=== PATIENT | female | born 1970 | race Caucasian/White ===

== ENCOUNTER 2017-11-11 09:38 | Outpatient (CLI) | payer OTHER | END 2017-11-11 09:39 | disposition home or self-care (01) | LOC: BICMAMMO 09:38 | PROVIDERS: ATTEND Obstetrics & Gynecology | DX: Z12.31 Encounter for screening mammogram for malignant neoplasm of breast (principal) | CPT/HCPCS: 77063; 77067 ==

== ENCOUNTER 2018-11-14 07:38 | Outpatient (CLI) | payer OTHER ==
--- NOTE | 2018-11-14 08:44 | MMO ---
Bilateral MAMMO Bilat Screen [facility]DI+[facility]. CLINICAL HISTORY: Patient is 48 years old and is seen for screening. The patient has no family history of breast cancer. The patient has no personal history of cancer. VIEWS: The views performed were: bilateral craniocaudal with tomosynthesis and bilateral mediolateral oblique with tomosynthesis. FILMS COMPARED: The present examination has been compared to prior imaging studies performed at [facility] on 10/07/2015, 11/08/2016 and 11/11/2017. MAMMOGRAM FINDINGS: The breasts are heterogeneously dense, which could obscure a lesion on mammography. Finding 1: There is a suggested area of architectural distortion seen in the upper-outer region of the left breast only on the tomsynthesis images. Finding 2: There are stable benign appearing calcifications seen in both breasts. IMPRESSION: FINDING 1: AREA OF ARCHITECTURAL DISTORTION IN THE LEFT BREAST REQUIRES ADDITIONAL EVALUATION. RECOMMEND DIAGNOSTIC MAMMOGRAM. FINDING 2: STABLE CALCIFICATIONS IN BOTH BREASTS ARE BENIGN. 3BTHE RESULTS OF THIS EXAM WERE SENT TO THE PATIENT.0B ACR BI-RADS Category 0 - Incomplete: Need additional imaging evaluation. [facility] will notify the patient of the need for additional imaging services. MAMMOGRAPHY NOTE: 1. A negative mammogram report should not delay a biopsy if a dominant of clinically suspicious mass is present. 2. Approximately 10% to 15% of breast cancers are not detected by mammography. 3. Adenosis and dense breasts may obscure an underlying neoplasm. Reported by: BEATRIZ ZEPEDA MD Electonically Signed: [id number]
== END 2018-11-14 07:39 | disposition home or self-care (01) ==
LOC: BICMAMMO 07:38
PROVIDERS: ATTEND Family Medicine
DX: Z12.31 Encounter for screening mammogram for malignant neoplasm of breast (principal); Q83.9 Congenital malformation of breast, unspecified
CPT/HCPCS: 77063; 77067

== ENCOUNTER 2018-12-17 08:10 | Outpatient (CLI) | payer OTHER ==
--- NOTE | 2018-12-17 08:50 | MMO ---
Left Breast MAMMO Unilat Diag DDI LT+ROCIO. CLINICAL HISTORY: Patient is 48 years old and is seen for additional evaluation requested from prior study. The patient has no family history of breast cancer. The patient has no personal history of cancer. VIEWS: The views performed were: left craniocaudal spot compression with tomosynthesis; left mediolateral oblique spot compression with tomosynthesis; and left mediolateral with tomosynthesis. FILMS COMPARED: The present examination has been compared to prior imaging studies performed at [facility] on 11/08/2016, 11/11/2017, 11/14/2018 and 12/17/2018. MAMMOGRAM FINDINGS: The breast is heterogeneously dense, which could obscure a lesion on mammography. There is a focal asymmetry seen in the upper-outer region of the left breast. This becomes less conspicuous at spot imaging. No sonographic correlate is identified. IMPRESSION: FOCAL ASYMMETRY IN THE LEFT BREAST IS PROBABLY BENIGN. FOLLOW-UP IN 6 MONTHS IS RECOMMENDED. THE RESULTS OF THIS EXAM WERE SENT TO THE PATIENT. ACR BI-RADS Category 3 - Probably benign finding - short interval follow-up suggested. [facility] will notify the patient of the need for additional imaging services. MAMMOGRAPHY NOTE: 1. A negative mammogram report should not delay a biopsy if a dominant of clinically suspicious mass is present. 2. Approximately 10% to 15% of breast cancers are not detected by mammography. 3. Adenosis and dense breasts may obscure an underlying neoplasm. Reported by: SIRI MCKEON MD Electonically Signed: [id number]
--- NOTE | 2018-12-17 10:19 | ULT ---
LIMITED LEFT BREAST ULTRASOUND: Date: 12/17/18 PROVIDED CLINICAL HISTORY: Abnormal mammogram. FINDINGS: Limited sonographic interrogation of the left breast from the 12-3 o'clock positions demonstrates sev eral simple cysts. No concerning mammographic findings are evident. IMPRESSION: BI-RADS Category 3 - Probably benign findings. 6 month follow-up diagnostic mammogram is recommended for findings seen only by mammography. Please see that report. POS: OFF
== END 2018-12-17 08:11 | disposition home or self-care (01) ==
LOC: BICMAMMO 08:10
PROVIDERS: ATTEND Family Medicine
DX: R92.2 Inconclusive mammogram (principal); N64.89 Other specified disorders of breast
CPT/HCPCS: G0279

== ENCOUNTER 2019-05-25 08:24 | Outpatient (CLI) | payer OTHER ==
--- NOTE | 2019-05-25 12:15 | CT ---
CT ABDOMEN PERFORMED WITH CONTRAST ENHANCEMENT: Date: 05/25/2019 HISTORY: Abdominal pain. Patient feels like there is a mass in the mid epigastric region. COMPARISON: None. FINDINGS: Lung bases show calcified granuloma in the left base. There are diffuse fatty changes of the liver, which measures 17.2 cm in length. The spleen, pancreas, and gallbladder regions are unremarkable. Right and left adrenal glands, and right and left kidneys are normal in size. Small hypodensities inv olving both kidneys are statistically most likely cysts. Punctate nonobstructing right renal calculus is present. There is no significant periaortic or mesenteric adenopathy. Colonic diverticulosis is n oted. There is a fat-containing periumbilical hernia present. There is slightly eventrated appearance to the mid abdominal wall. IMPRESSION: 1. Fatty change of liver. 2. Colonic diverticulosis. 3. Small fat-containing periumbilical hernia. There is also slight eventration to the midline of the anterior abdominal wall. 4. Punctate nonobstructing right renal calculus. POS: DEYANIRA
[2019-05-25] MEDS ORDERED: Iopamidol 370 76% 100 ML VIAL ONE (13:49)
== END 2019-05-25 08:25 | disposition home or self-care (01) ==
LOC: CT 08:24
PROVIDERS: ATTEND Family Medicine
DX: R10.9 Unspecified abdominal pain (principal); K76.0 Fatty (change of) liver, not elsewhere classified; N20.0 Calculus of kidney; K42.9 Umbilical hernia without obstruction or gangrene; K57.30 Diverticulosis of large intestine without perforation or abscess without bleeding
CPT/HCPCS: 74160; Q9967

== ENCOUNTER 2019-06-25 08:25 | Outpatient (CLI) | payer OTHER ==
--- NOTE | 2019-06-25 09:16 | MMO ---
Left Breast MAMMO Unilat Diag [facility]DI LT+ROCIO. CLINICAL HISTORY: Patient is 49 years old and is seen for follow-up at short-interval from prior study. The patient has no family history of breast cancer. The patient has no personal history of cancer. VIEWS: The views performed were: left craniocaudal with tomosynthesis; left craniocaudal spot compression with tomosynthesis; left mediolateral oblique with tomosynthesis; left mediolateral oblique spot compression with tomosynthesis; and left mediolateral with tomosynthesis. FILMS COMPARED: The present examination has been compared to prior imaging studies performed at [facility] on 11/14/2018, 12/17/2018 and 06/25/2019. This study has been interpreted with the assistance of computer-aided detection. MAMMOGRAM FINDINGS: The breast is heterogeneously dense, which could obscure a lesion on mammography. There is a stable focal asymmetry seen in the upper-outer region of the left breast. IMPRESSION: STABLE FOCAL ASYMMETRY IN THE LEFT BREAST IS PROBABLY BENIGN. FOLLOW-UP IN 6 MONTHS IS RECOMMENDED. THE RESULTS OF THIS EXAM WERE SENT TO THE PATIENT. ACR BI-RADS Category 3 - Probably benign finding - short interval follow-up suggested. [facility] will notify the patient of the need for additional imaging services. MAMMOGRAPHY NOTE: 1. A negative mammogram report should not delay a biopsy if a dominant of clinically suspicious mass is present. 2. Approximately 10% to 15% of breast cancers are not detected by mammography. 3. Adenosis and dense breasts may obscure an underlying neoplasm. Reported by: PIPPA SINHA MD Electonically Signed: [id number]
--- NOTE | 2019-06-25 10:51 | ULT ---
LEFT BREAST ULTRASOUND: HISTORY: Abnormal mammogram. FINDINGS: Comparison is made with the ultrasound of 12/17/2018 and correlation was made with the mammograms of gil shirley and 12/17/2018. Sonographic evaluation of the left breast from the 12 through 3 o'clock positions demonstrates multip le cysts. No suspicious sonographic finding is seen to correspond to the mammographic findings. IMPRESSION: BIRADS category 3 - probably benign findings. Six-month followup diagnostic mammogram and ultrasound are recommended.
== END 2019-06-25 08:26 | disposition home or self-care (01) ==
LOC: BICMAMMO 08:25
PROVIDERS: ATTEND Family Medicine
DX: R92.2 Inconclusive mammogram (principal); N64.89 Other specified disorders of breast
CPT/HCPCS: G0279

== ENCOUNTER 2019-10-20 13:37 | Outpatient (CLI) | payer OTHER ==
[2019-10-21 13:33] LABS: SARS-CoV-2 MS2 Positive; SARS-CoV-2 N Gene Negative; SARS-CoV-2 S Gene Negative; SARS-CoV-2 orf1ab Negative
== END 2019-10-20 13:38 | disposition home or self-care (01) ==
LOC: LABSCS 13:37
PROVIDERS: ATTEND Internal Medicine Gastroenterology
DX: Z01.812 Encounter for preprocedural laboratory examination (principal); Z11.59 Encounter for screening for other viral diseases
CPT/HCPCS: 87635; U0003

== ENCOUNTER 2019-10-22 08:38 | Outpatient (CLI) | payer OTHER ==
--- NOTE | 2019-10-22 10:58 | RAD ---
At the GI air contrast HISTORY: Dysphagia. Reflux. Hiatal hernia. FINDINGS: Air contrast barium evaluation shows a small sliding hiatal hernia. Moderate amount of refl ux of gastric contrast into the esophagus. Mild nonpropulsive tertiary type contractions. Normal gastric peristalsis. No focal mass or ulceration. Duodenum and visualized proximal small bowel are within normal limits. Fluoroscopy time 1.4 minutes. IMPRESSION : Very small sliding hiatal hernia without a paraesophageal component. Moderate amount of gastroesophageal reflux with tertiary contractions of the esophagus.
== END 2019-10-22 08:39 | disposition home or self-care (01) ==
LOC: RAD 08:38
PROVIDERS: ATTEND Internal Medicine Gastroenterology
DX: K21.9 Gastro-esophageal reflux disease without esophagitis (principal); K44.0 Diaphragmatic hernia with obstruction, without gangrene; K22.8 Other specified diseases of esophagus
CPT/HCPCS: 74246

== ENCOUNTER 2020-01-15 08:09 | Outpatient (CLI) | payer BC ==
--- NOTE | 2020-01-15 09:06 | ULT ---
EXAM: US Breast Limited Lt PROVIDED CLINICAL HISTORY: Abnormal mammogram COMPARISON: Prior ultrasounds and diagnostic mammograms FINDINGS: Limited sonographic interrogation was performed of the left breast in the region of mammographic conc james. Several small simple cysts are seen. No concerning sonographic finding is evident. IMPRESSION: No concerning sonographic finding is evident. Six-month follow-up diagnostic left mammogram is recomm ended. BI-RADS 3 -- probably benign, 6-month follow-up
--- NOTE | 2020-01-15 09:06 | MMO ---
Bilateral MAMMO Bilat Diag [facility]DI+ROCIO. CLINICAL HISTORY: Patient is 49 years old and is seen for diagnostic exam. The patient has no family history of breast cancer. The patient has no personal history of cancer. VIEWS: The views performed were: bilateral craniocaudal with tomosynthesis; bilateral mediolateral oblique with tomosynthesis; and bilateral mediolateral with tomosynthesis. FILMS COMPARED: The present examination has been compared to prior imaging studies performed at [facility] on 12/17/2018, 06/25/2019 and 01/15/2020. This study has been interpreted with the assistance of computer-aided detection. MAMMOGRAM FINDINGS: The breasts are heterogeneously dense, which could obscure a lesion on mammography. Finding 1: There are stable benign appearing calcifications seen in both breasts. Finding 2: There is a stable focal asymmetry seen in the upper-outer region of the left breast. Sonography of this region demonstrates no concerning findings. IMPRESSION: FINDING 2: STABLE FOCAL ASYMMETRY IN THE LEFT BREAST IS PROBABLY BENIGN. FOLLOW-UP IN 6 MONTHS IS RECOMMENDED. THE RESULTS OF THIS EXAM WERE SENT TO THE PATIENT. ACR BI-RADS Category 3 - Probably benign finding - short interval follow-up suggested. [facility] will notify the patient of the need for additional imaging services. MAMMOGRAPHY NOTE: 1. A negative mammogram report should not delay a biopsy if a dominant of clinically suspicious mass is present. 2. Approximately 10% to 15% of breast cancers are not detected by mammography. 3. Adenosis and dense breasts may obscure an underlying neoplasm. Reported by: SIRI MCKEON MD Electonically Signed: [id number]
== END 2020-01-15 08:10 | disposition home or self-care (01) ==
LOC: BICMAMMO 08:09
PROVIDERS: ATTEND Family Medicine
DX: R92.8 Other abnormal and inconclusive findings on diagnostic imaging of breast (principal); N64.89 Other specified disorders of breast
CPT/HCPCS: 77066; G0279

== ENCOUNTER 2020-07-18 08:13 | Outpatient (CLI) | payer BC | END 2020-07-18 08:14 | disposition home or self-care (01) | LOC: BICMAMMO 08:13 | PROVIDERS: ATTEND Family Medicine | DX: R92.8 Other abnormal and inconclusive findings on diagnostic imaging of breast (principal) | CPT/HCPCS: G0279 ==

== ENCOUNTER 2023-10-23 07:55 | Outpatient (CLI) | payer BC | END 2023-10-23 07:56 | disposition home or self-care (01) | LOC: BICMAMMO 07:55 | PROVIDERS: ATTEND Physician Assistant | DX: N63.21 Unspecified lump in the left breast, upper outer quadrant (principal); N64.9 Disorder of breast, unspecified | CPT/HCPCS: 77066; G0279 ==

== ENCOUNTER → 2023-10-31 | Day surgery (SDC) | payer BC | LOC: BICULT 12:36 | PROVIDERS: ATTEND Physician Assistant | PROC: 0H95XZX Drainage of Chest Skin, External Approach, Diagnostic (ICD-10-PCS; principal; 2023-10-31) | DX: C50.412 Malignant neoplasm of upper-outer quadrant of left female breast (principal); Z17.0 Estrogen receptor positive status [ER+]; R92.8 Other abnormal and inconclusive findings on diagnostic imaging of breast | CPT/HCPCS: 19083; 19084; 88305; 88341; 88342; 88360 ==

== ENCOUNTER 2023-11-27 08:39 | Outpatient (CLI) | payer BC | END 2023-11-27 08:40 | disposition home or self-care (01) | LOC: BICCT 08:39 | PROVIDERS: ATTEND Internal Medicine | DX: Z12.2 Encounter for screening for malignant neoplasm of respiratory organs (principal); Z87.891 Personal history of nicotine dependence | CPT/HCPCS: 71271 ==

== ENCOUNTER 2024-02-18 10:50 | Inpatient (IN) | payer BC ==
[2024-02-18 11:18] LABS: #Basophils 0.08 10x3/uL (0.0-0.2); #Eosinophils Less than 0.03 10x3/uL (0.0-0.7); %Basophils 0.5 % (0.0-1.0); %Lymphocytes 17.9 % (21.0-51.0); %Monocytes 7.7 % (0.0-10.0); %Neutrophils 70.2 % (42.0-75.0); Hematocrit 33.7 % (36.0-47.0); Hemoglobin 10.9 g/dL (12.0-16.0); Mean Corpuscular HGB CONC 32.3 g/dL (32.0-36.0); Mean Corpuscular Volume 102.1 fL (78.0-98.0); Mean Platelet Volume 9.1 fL (7.4-10.4); Platelet Count 218 10x3/uL (130-400); RBC Distribution Width 14.6 % (11.5-14.5)
[2024-02-18 11:37] LABS: ALT (SGPT) 31 U/L (8-55); AST (SGOT) 27 U/L (5-34); Albumin 3.9 g/dL (3.5-5.0); Alkaline Phosphatase 96 U/L (40-110); Anion Gap 13 mmol/L (10-20); BUN (Urea Nitrogen) 12 mg/dL (9.8-20.1); Bilirubin, Total 0.2 mg/dL (0.2-1.2); Calc. Creatinine Clearance 0 mL/min (70-130); Calcium 9.2 mg/dL (7.8-10.44); Carbon Dioxide 24 mmol/L (22-29); Chloride 105 mmol/L (98-107); Estimated GFR 104; Globulin 2.8 g/dL (2.4-3.5); Glucose 93 mg/dL (70-105); Lipase 21 U/L (8-78); Potassium 3.9 mmol/L (3.5-5.1); Protein, Total 6.7 g/dL (6.0-8.3); Sodium 138 mmol/L (136-145)
[2024-02-18] MEDS ORDERED: Iopamidol-370 76% 500 ML MDV (1 ML CHARGE) ONE (11:51)
[2024-02-18] MEDS ORDERED: Pantoprazole 40 MG VIAL ONE (11:58)
[2024-02-18 13:10] LABS: INR-International Normal Ratio 0.9; Prothrombin Time 12.6 sec (12.0-14.7)
[2024-02-18] MEDS ORDERED: Acetaminophen 325 MG TAB PO PRN (13:48)
[2024-02-18 15:00] VITALS: BMI 27.4
[2024-02-18 18:08] LABS: #Basophils 0.06 10x3/uL (0.0-0.2); #Eosinophils Less than 0.03 10x3/uL (0.0-0.7); %Basophils 0.4 % (0.0-1.0); %Lymphocytes 19.7 % (21.0-51.0); %Monocytes 5.2 % (0.0-10.0); %Neutrophils 72.7 % (42.0-75.0); Hematocrit 33.4 % (36.0-47.0); Mean Corpuscular HGB CONC 32.9 g/dL (32.0-36.0); Mean Corpuscular Hemoglobin 33.2 pg (27.0-31.0); Mean Corpuscular Volume 100.9 fL (78.0-98.0); Mean Platelet Volume 9.5 fL (7.4-10.4); Platelet Count 210 10x3/uL (130-400); RBC Distribution Width 14.6 % (11.5-14.5); Red Blood Cell (RBC) Count 3.31 mill/uL (4.20-5.40)
[2024-02-18] MEDS: Pantoprazole 40 MG VIAL IVP SCH (21:41)
[2024-02-19 05:11] LABS: #Basophils 0.07 10x3/uL (0.0-0.2); #Eosinophils Less than 0.03 10x3/uL (0.0-0.7); %Basophils 0.6 % (0.0-1.0); %Lymphocytes 22.5 % (21.0-51.0); %Monocytes 9.2 % (0.0-10.0); %Neutrophils 64.9 % (42.0-75.0); Hematocrit 33.1 % (36.0-47.0); Hemoglobin 10.6 g/dL (12.0-16.0); Mean Corpuscular Hemoglobin 32.8 pg (27.0-31.0); Mean Corpuscular Volume 102.5 fL (78.0-98.0); Mean Platelet Volume 9.6 fL (7.4-10.4); Platelet Count 214 10x3/uL (130-400); Red Blood Cell (RBC) Count 3.23 mill/uL (4.20-5.40)
[2024-02-19] MEDS ORDERED: Pantoprazole 40 MG VIAL IVP SCH (09:00)
[2024-02-19] MEDS ORDERED: PROPOFOL 20 ML ONE ×2 (10:46→10:52)
[2024-02-19] MEDS ORDERED: PHENYLEPHRINE-NS 100 MCG/ML 10 ML SYRINGE ONE (10:55)
[2024-02-19] MEDS ORDERED: Ondansetron PF 4 MG/2 ML Vial ONE (11:01)
[2024-02-19] MEDS: GoLYTELY 4,000 ml Bottle PO SCH (17:15)
[2024-02-19] MEDS ORDERED: traMADol HCl 50 MG TAB PO PRN (18:41)
[2024-02-19] MEDS: Acyclovir 400 mg Tablet PO SCH (21:49)
[2024-02-19] MEDS: Citalopram 10 MG TAB PO SCH (21:50)
[2024-02-20] MEDS ORDERED: Pantoprazole DR 40 MG TAB PO SCH (09:00)
[2024-02-20] MEDS ORDERED: Citalopram 10 MG TAB PO SCH (09:00)
[2024-02-20] MEDS ORDERED: Lidocaine 2% PF 5 ML VIAL ONE (09:12)
[2024-02-20] MEDS ORDERED: Midazolam HCl 2 mg/2 ml Vial ONE (09:12)
[2024-02-20] MEDS ORDERED: PROPOFOL 20 ML ONE (09:13)
[2024-02-20 18:29] LABS: #Basophils 0.06 10x3/uL (0.0-0.2); #Eosinophils Less than 0.03 10x3/uL (0.0-0.7); %Basophils 0.6 % (0.0-1.0); %Lymphocytes 28.2 % (21.0-51.0); %Monocytes 10.6 % (0.0-10.0); %Neutrophils 59.1 % (42.0-75.0); Hematocrit 30.4 % (36.0-47.0); Hemoglobin 9.7 g/dL (12.0-16.0); Mean Corpuscular HGB CONC 31.9 g/dL (32.0-36.0); Mean Corpuscular Hemoglobin 33.1 pg (27.0-31.0); Mean Corpuscular Volume 103.8 fL (78.0-98.0); Mean Platelet Volume 9.3 fL (7.4-10.4); Platelet Count 193 10x3/uL (130-400); RBC Distribution Width 14.8 % (11.5-14.5); Red Blood Cell (RBC) Count 2.93 mill/uL (4.20-5.40)
[2024-02-20 18:53] LABS: ALT (SGPT) 28 U/L (8-55); AST (SGOT) 25 U/L (5-34); Albumin 3.5 g/dL (3.5-5.0); Alkaline Phosphatase 71 U/L (40-110); Anion Gap 12 mmol/L (10-20); BUN (Urea Nitrogen) 8 mg/dL (9.8-20.1); Bilirubin, Total 0.2 mg/dL (0.2-1.2); Calc. Creatinine Clearance 112 mL/min (70-130); Calcium 8.7 mg/dL (7.8-10.44); Carbon Dioxide 24 mmol/L (22-29); Chloride 106 mmol/L (98-107); Estimated GFR 103; Globulin 2.5 g/dL (2.4-3.5); Glucose 98 mg/dL (70-105); Potassium 3.7 mmol/L (3.5-5.1); Sodium 138 mmol/L (136-145)
[2024-02-20] MEDS: Citalopram 10 MG TAB PO SCH (20:15)
[2024-02-20] MEDS: Simvastatin 10 MG TAB PO SCH (20:15)
[2024-02-21 05:08] LABS: #Basophils 0.04 10x3/uL (0.0-0.2); #Eosinophils Less than 0.03 10x3/uL (0.0-0.7); %Basophils 0.4 % (0.0-1.0); %Lymphocytes 29.2 % (21.0-51.0); Hematocrit 28.7 % (36.0-47.0); Hemoglobin 9.1 g/dL (12.0-16.0); Mean Corpuscular HGB CONC 31.7 g/dL (32.0-36.0); Mean Corpuscular Hemoglobin 32.7 pg (27.0-31.0); Mean Corpuscular Volume 103.2 fL (78.0-98.0); Mean Platelet Volume 9.4 fL (7.4-10.4); Platelet Count 177 10x3/uL (130-400); RBC Distribution Width 14.8 % (11.5-14.5); Red Blood Cell (RBC) Count 2.78 mill/uL (4.20-5.40)
[2024-02-21 05:21] LABS: Anion Gap 10 mmol/L (10-20); BUN (Urea Nitrogen) 9 mg/dL (9.8-20.1); Calc. Creatinine Clearance 122 mL/min (70-130); Calcium 8.7 mg/dL (7.8-10.44); Carbon Dioxide 27 mmol/L (22-29); Chloride 106 mmol/L (98-107); Estimated GFR 105; Glucose 91 mg/dL (70-105); Sodium 139 mmol/L (136-145)
[2024-02-21] MEDS: Pantoprazole DR 40 MG TAB PO SCH (10:34)
[2024-02-21 13:47] VITALS: BP 142/81; TEMP 98.6
== END 2024-02-21 14:20 | disposition home or self-care (01) | DRG 378 ==
LOC: ERS 10:50 → MSONC 14:39
PROVIDERS: ADMIT Hospitalist; ATTEND Student in an Organized Health Care Education/Training Program
PROC: 0DJ08ZZ Inspection of Upper Intestinal Tract, Via Natural or Artificial Opening Endoscopic (ICD-10-PCS; principal; 2024-02-19)
DX: K92.1 Melena (principal); I82.612 Acute embolism and thrombosis of superficial veins of left upper extremity; D72.829 Elevated white blood cell count, unspecified; C50.919 Malignant neoplasm of unspecified site of unspecified female breast; K21.9 Gastro-esophageal reflux disease without esophagitis; I10 Essential (primary) hypertension; K57.30 Diverticulosis of large intestine without perforation or abscess without bleeding; K64.8 Other hemorrhoids; K31.7 Polyp of stomach and duodenum; T45.1X5A Adverse effect of antineoplastic and immunosuppressive drugs, initial encounter; Z92.21 Personal history of antineoplastic chemotherapy; Z88.8 Allergy status to other drugs, medicaments and biological substances; Z88.7 Allergy status to serum and vaccine; Z91.018 Allergy to other foods; Z91.09 Other allergy status, other than to drugs and biological substances; Z79.899 Other long term (current) drug therapy; Z88.1 Allergy status to other antibiotic agents; Z87.891 Personal history of nicotine dependence
CPT/HCPCS: 36415; 74177; 80048; 80053; 83605; 83690; 85025; 85610; 85730; 96374; J2250; J2405; J2470; J2704; Q9967

== ENCOUNTER 2024-04-17 10:41 | Outpatient (CLI) | payer BC ==
[2024-04-17 12:32] LABS: #Basophils 0.06 10x3/uL (0.0-0.2); %Basophils 0.6 % (0.0-1.0); %Eosinophils 0.4 % (0.0-10.0); %Lymphocytes 24.5 % (21.0-51.0); %Monocytes 12.3 % (0.0-10.0); Hematocrit 37.1 % (36.0-47.0); Hemoglobin 11.8 g/dL (12.0-16.0); Mean Corpuscular HGB CONC 31.8 g/dL (32.0-36.0); Mean Corpuscular Hemoglobin 31.8 pg (27.0-31.0); Mean Platelet Volume 11.1 fL (7.4-10.4); Platelet Count 305 10x3/uL (130-400); RBC Distribution Width 13.5 % (11.5-14.5); Red Blood Cell (RBC) Count 3.71 mill/uL (4.20-5.40)
[2024-04-17 13:08] LABS: Anion Gap 14 mmol/L (10-20); BUN (Urea Nitrogen) 17 mg/dL (9.8-20.1); Calc. Creatinine Clearance 0 mL/min (70-130); Calcium 9.5 mg/dL (7.8-10.44); Carbon Dioxide 23 mmol/L (22-29); Chloride 107 mmol/L (98-107); Estimated GFR 105; Glucose 85 mg/dL (70-105); Potassium 4.5 mmol/L (3.5-5.1); Sodium 139 mmol/L (136-145)
== END 2024-04-17 10:42 | disposition home or self-care (01) ==
LOC: LABBT 10:41
PROVIDERS: ATTEND Specialist
DX: Z01.818 Encounter for other preprocedural examination (principal); C50.912 Malignant neoplasm of unspecified site of left female breast
CPT/HCPCS: 80048; 85025; 93005; 93010

== ENCOUNTER 2024-04-17 12:21 | Emergency (ER) | payer BC ==
[2024-04-17 13:02] LABS: #Basophils 0.06 10x3/uL (0.0-0.2); %Basophils 0.6 % (0.0-1.0); %Eosinophils 0.5 % (0.0-10.0); %Lymphocytes 25.4 % (21.0-51.0); %Monocytes 10.6 % (0.0-10.0); %Neutrophils 62.6 % (42.0-75.0); Hematocrit 37.4 % (36.0-47.0); Mean Corpuscular HGB CONC 32.1 g/dL (32.0-36.0); Mean Corpuscular Hemoglobin 31.7 pg (27.0-31.0); Mean Corpuscular Volume 98.9 fL (78.0-98.0); Mean Platelet Volume 9.5 fL (7.4-10.4); Platelet Count 389 10x3/uL (130-400); RBC Distribution Width 13.4 % (11.5-14.5); Red Blood Cell (RBC) Count 3.78 mill/uL (4.20-5.40)
[2024-04-17 13:29] LABS: ALT (SGPT) 38 U/L (8-55); AST (SGOT) 38 U/L (5-34); Albumin 4.2 g/dL (3.5-5.0); Alkaline Phosphatase 79 U/L (40-110); Anion Gap 12 mmol/L (10-20); BUN (Urea Nitrogen) 16 mg/dL (9.8-20.1); Bilirubin, Total 0.3 mg/dL (0.2-1.2); Calc. Creatinine Clearance 0 mL/min (70-130); Calcium 9.8 mg/dL (7.8-10.44); Carbon Dioxide 26 mmol/L (22-29); Chloride 105 mmol/L (98-107); Estimated GFR 105; Globulin 3.1 g/dL (2.4-3.5); Glucose 90 mg/dL (70-105); Protein, Total 7.3 g/dL (6.0-8.3); Sodium 139 mmol/L (136-145)
[2024-04-17 13:31] LABS: Troponin I Less than 0.010 ng/mL (< 0.028)
[2024-04-17] MEDS ORDERED: dilTIAZem 25 MG/5 ML VIAL ONE (13:35)
== END 2024-04-17 15:15 | disposition home or self-care (01) ==
LOC: ERS 12:21
DX: I48.91 Unspecified atrial fibrillation (principal)
CPT/HCPCS: 71045; 84484; 93005; 96374

== ENCOUNTER 2024-04-24 07:59 | Day surgery (SDC) | payer BC ==
[2024-04-24] MEDS ORDERED: CEFAZOLIN 2 GM VIAL ONE (09:50)
[2024-04-24] MEDS ORDERED: Heparin 5,000 UNITS/ML VIAL ONE (09:50)
[2024-04-24] MEDS ORDERED: Acetaminophen 500 MG TAB ONE (09:50)
[2024-04-24] MEDS ORDERED: Ketorolac Tromethamine 30 MG (1 mL) VIAL ONE (09:50)
[2024-04-24] MEDS ORDERED: Isosulfan Blue 50 MG/5 ML VIAL ONE (10:36)
[2024-04-24] MEDS ORDERED: Bupivacaine 0.25% HCL 30 ML VIAL ONE (10:36)
[2024-04-24] MEDS ORDERED: EPINEPHrine 1 MG/ML VIAL ONE (10:36)
[2024-04-24] MEDS ORDERED: Vancomycin 1 GM VIAL ONE (11:16)
[2024-04-24] MEDS ORDERED: Indocyanine Green 25 MG/10 ML VIAL ONE (11:20)
[2024-04-24] MEDS ORDERED: fentaNYL PF 100 MCG/2 ML SYRINGE ONE (11:35)
[2024-04-24] MEDS ORDERED: PROPOFOL 20 ML ONE (11:35)
[2024-04-24] MEDS ORDERED: Midazolam HCl 2 mg/2 ml Vial ONE ×2 (11:35→11:37)
[2024-04-24] MEDS ORDERED: Lidocaine 1% PF 5 ML VIAL ONE (12:00)
[2024-04-24] MEDS ORDERED: Rocuronium Bromide 10 MG/ML (10ML VIAL) ONE (12:00)
[2024-04-24] MEDS ORDERED: fentaNYL 50 mcg/mL 1 mL Vial ONE (13:20)
[2024-04-24] MEDS ORDERED: KETAMINE 100 MG/ML (5ML VIAL) ONE (13:44)
[2024-04-24] MEDS ORDERED: Ondansetron PF 4 MG/2 ML Vial ONE (14:29)
[2024-04-24] MEDS ORDERED: Dexamethasone 20 MG/5 ML VIAL ONE (14:29)
[2024-04-24] MEDS ORDERED: SUGAMMADEX SODIUM 200 MG/2 ML VIAL ONE (14:37)
[2024-04-24] MEDS ORDERED: HYDROcodone/Acetaminophen 5/325 mg Tablet ONE (17:34)
== END 2024-04-24 17:55 | disposition home or self-care (01) ==
LOC: SDC 07:59
PROVIDERS: ATTEND Specialist
PROC: 07B60ZZ Excision of Left Axillary Lymphatic, Open Approach (ICD-10-PCS; principal; 2024-04-24)
PROC: 0HTV0ZZ Resection of Bilateral Breast, Open Approach (ICD-10-PCS; principal; 2024-04-24)
DX: C50.912 Malignant neoplasm of unspecified site of left female breast (principal); C77.3 Secondary and unspecified malignant neoplasm of axilla and upper limb lymph nodes; N60.91 Unspecified benign mammary dysplasia of right breast; I10 Essential (primary) hypertension; Z96.653 Presence of artificial knee joint, bilateral; Z87.891 Personal history of nicotine dependence; Z98.890 Other specified postprocedural states; Z91.048 Other nonmedicinal substance allergy status; Z91.018 Allergy to other foods; Z88.1 Allergy status to other antibiotic agents; Z88.8 Allergy status to other drugs, medicaments and biological substances; Z79.51 Long term (current) use of inhaled steroids; Z79.899 Other long term (current) drug therapy
CPT/HCPCS: 78195; 88307; 88309; 88341; 88342; A6258; A9541; C1713; J0171; J0665; J1100; J1642; J1644; J1885; J2250; J2405; J2704; J3010; J3370; Q9968

== ENCOUNTER 2024-05-25 06:04 | Day surgery (SDC) | payer BC ==
[2024-05-21 14:36] VITALS: BMI 28.2
[2024-05-25] MEDS ORDERED: Acetaminophen 500 MG TAB ONE (06:34)
[2024-05-25] MEDS ORDERED: Ketorolac Tromethamine 30 MG (1 mL) VIAL ONE (06:34)
[2024-05-25] MEDS ORDERED: Heparin 5,000 UNITS/ML VIAL ONE (06:34)
[2024-05-25] MEDS ORDERED: CEFAZOLIN 2 GM VIAL ONE (06:35)
[2024-05-25] MEDS ORDERED: Bupivacaine 0.25% HCL 30 ML VIAL ONE ×2 (06:54→13:38)
[2024-05-25] MEDS ORDERED: Gentamicin 80 MG/2 ML VIAL ONE ×2 (06:54→08:44)
[2024-05-25] MEDS ORDERED: EPINEPHrine 1 MG/ML VIAL ONE (06:54)
[2024-05-25] MEDS ORDERED: Vancomycin 1 GM VIAL ONE ×2 (06:55→08:45)
[2024-05-25] MEDS ORDERED: Rocuronium Bromide 10 MG/ML (10ML VIAL) ONE ×2 (07:03→07:14)
[2024-05-25] MEDS ORDERED: PROPOFOL 20 ML ONE (07:03)
[2024-05-25] MEDS ORDERED: fentaNYL PF 100 MCG/2 ML SYRINGE ONE ×2 (07:03→09:53)
[2024-05-25] MEDS ORDERED: Lidocaine 1% PF 5 ML VIAL ONE ×2 (07:14→13:45)
[2024-05-25] MEDS ORDERED: Midazolam HCl 2 mg/2 ml Vial ONE (07:22)
[2024-05-25] MEDS ORDERED: Ondansetron PF 4 MG/2 ML Vial ONE (08:41)
[2024-05-25] MEDS ORDERED: Dexamethasone 20 MG/5 ML VIAL ONE (08:41)
[2024-05-25] MEDS ORDERED: PHENYLEPHRINE-NS 100 MCG/ML 10 ML SYRINGE ONE (09:13)
[2024-05-25] MEDS ORDERED: Indocyanine Green 25 MG/10 ML VIAL ONE (10:29)
[2024-05-25] MEDS ORDERED: SUGAMMADEX SODIUM 200 MG/2 ML VIAL ONE (10:59)
[2024-05-25] MEDS ORDERED: fentaNYL 50 mcg/mL 1 mL Vial ONE (11:44)
[2024-05-25] MEDS ORDERED: Dexmedetomidine 200 MCG/2 ML VIAL ONE (13:38)
== END 2024-05-25 15:45 | disposition home or self-care (01) ==
LOC: SDC 06:04
PROVIDERS: ATTEND Plastic Surgery
DX: C50.912 Malignant neoplasm of unspecified site of left female breast (principal); Z90.13 Acquired absence of bilateral breasts and nipples
CPT/HCPCS: 88307; C1713; J0171; J0665; J1100; J1580; J1644; J1885; J2250; J2405; J2704; J3010; J3370